=== PATIENT | male | born 1950 | race Caucasian/White ===

== ENCOUNTER 2018-01-11 05:20 | Inpatient (IN) | payer OTHER, BC ==
[2018-01-05 10:22] LABS: ABSOLUTE NEUTROPHILS 4.2 thou/uL (1.4-8.2); BASOPHILS 0.6 % (0.0-2.0); HEMATOCRIT 47.8 % (42.0-52.0); HEMOGLOBIN 16.2 gm/dL (14.0-18.0); LYMPHOCYTES 25.9 % (24.0-44.0); MCH 27.7 pg (26.0-34.0); MCHC 33.8 g/dL (28.0-37.0); MCV 81.9 fL (80.0-100.0); MONOCYTES 10.3 % (1.0-8.0); PLATELET COUNT 156 thou/uL (150-400); POLYS 59.2 % (36.0-66.0); RBC 5.84 mil/uL (4.50-6.00); RDW 13.8 % (10.5-14.5)
[2018-01-05 10:24] LABS: URINE BILIRUBIN NEGATIVE (Negative); URINE BLOOD NEGATIVE (Negative); URINE CLARITY CLEAR; URINE COLOR YELLOW; URINE GLUCOSE-RANDOM* NEGATIVE (Negative); URINE KETONES NEGATIVE (Negative); URINE LEUKOCYTES NEGATIVE (Negative); URINE NITRITE NEGATIVE (Negative); URINE PROTEIN (DIPSTICK) NEGATIVE (Negative); URINE SPECIFIC GRAVITY <= 1.005 (1.005-1.035); URINE UROBILINOGEN 0.2 E.U./dl (0.2-1.0)
[2018-01-05 10:34] LABS: APTT 26.3 Seconds (24.5-32.8); PROTIME 10.6 Seconds (9.3-11.4)
[2018-01-05 10:38] LABS: CALCIUM 8.8 mg/dL (8.5-10.1); CREATININE 1.2 mg/dL (0.7-1.3); POTASSIUM 4.4 mmol/L (3.5-5.1); TOTAL BILIRUBIN 0.7 mg/dL (<0.1-1.0); TOTAL PROTEIN 6.9 g/dL (6.4-8.2)
[2018-01-06 03:14] LABS: GLYCOHEMOGLOBIN (HGB A1C) 5.1 % (4.8-5.6)
[~2018-01-11] VITALS: Ht 182.9 cm; Wt 95.3 kg
[2018-01-11] VITALS (11 sets, daily range): BP systolic 96–129; BP diastolic 55–74
--- NOTE | ~2018-01-11 | EKG ---
[place] [address] [facility] [place] [address] ELECTROCARDIOGRAM REPORT Name: ABBEY PARR Room #: [facility]#: [id number] Admission: Attend Phys: Bashir Aguero MD Discharge: Date of : 50 Report #: [id number] THIS REPORT FOR: //name// [facility] Test Date: 2018-01-05 Test Time: 10:19:00 Pat Name: ABBEY HOWELLJUANITA Department: Room: Gender: M Portfolio Consultant: TALITA WILLIAMSON : 1950 Requested By: Bashir Aguero Order Number: [id number] MD: Miah Powell Measurements Intervals [place] Rate: 49 P: 47 SC: 191 QRS: 4 QRSD: 107 T: 118 QT: 436 QTc: 394 Interpretive Statements Sinus bradycardia Probable left atrial enlargement Inferior infarct, old Probable anteroseptal infarct, age indeterminate No previous ECG available for comparison Electronically Signed On 01-08-2018 13:19:43 CDT by Miah Powell [email or web address] <ELECTRONICALLY SIGNED> By: Miah Powell MD, [facility] 01/08/18 1319 [id number] [id number] Miah Powell MD, FACC /EPI
--- NOTE | ~2018-01-11 | O ---
[facility] [place] [address] OPERATIVE REPORT Name: ABBEY PARR Room #: 239-P [facility] IN M.R.#: [id number] Admission: 01/11/18 Attend Phys: Bashir Aguero MD Discharge: 01/12/18 Date of : 50 Report #: [id number] THIS REPORT FOR: //name// CC: JUSTIN Angel DATE OF SERVICE: 01/11/2018 PREOPERATIVE DIAGNOSIS: Infrarenal abdominal aortic aneurysm, asymptomatic. FINAL DIAGNOSIS: Infrarenal abdominal aortic aneurysm, asymptomatic. OPERATIVE PROCEDURE PERFORMED: 1. Endovascular repair of infrarenal abdominal aortic aneurysm with [place] Excluder system. 2. Bilateral femoral artery exploration. CO-SURGEONS: Bashir Aguero MD and Justin Grubbs MD ANESTHESIA: General. OPERATIVE INDICATIONS: The patient is a very pleasant 67-year-old male who has a known infrarenal abdominal aortic aneurysm that has been observed for some time, has now grown to a size over 5 cm, approximately 5.3. He is admitted at this time now for management of his abdominal aortic aneurysm. OPERATIVE SUMMARY: The patient was brought into the interventional lab, placed on the table in the supine position. After anesthesia was induced via the general endotracheal route and monitoring lines have been positioned, the patient was prepped and draped in sterile fashion with chlorhexidine. I first performed oblique incisions in both groin dissecting down over the femoral arteries and dissecting free the common femoral artery from surrounding tissue. They were each encircled with a vascular loop. Heparin was given. Venipuncture was performed of both common femoral arteries. J wires were placed and then a 6-Maldivian sheath was placed on both sides. A longer J-wire was then advanced up into the abdomen. A catheter was placed over this wire and then a Maria Luisa wire was positioned. On the left side, the 6-Maldivian sheath was replaced with a 12-Maldivian sheath and on the right side the 6-Maldivian sheath was replaced with an 18-Maldivian sheath. From the patient's left side, Dr. Grubbs performed intubation of the left renal artery to marina the site. The body and ipsilateral limb of the device, which was a 23 x 14 x 16 size was then positioned just below the renal artery and was deployed down past the flow divider. The wire and catheter that had been positioned in the left renal artery were then withdrawn back to the aneurysm sac and the gate of the contralateral leg was intubated and [facility] [address] [place] [address] OPERATIVE REPORT Name: ABBEY PARR Room #: 239-P [facility] IN M.R.#: [id number] Admission: 01/11/18 Attend Phys: Bashir Aguero MD Discharge: 01/12/18 Date of : 50 Report #: [id number] confirmed with the technique by pigtail catheter. The contralateral leg, which was an 18 x 14 iliac branch limb was deployed after confirming location of the hypogastric vessels with retrograde angiography with hand injection of contrast. This contralateral leg was then deployed down to the hypogastric vessel on the patient's left leg. Next, the remaining segment of the ipsilateral leg was deployed down to the hypogastric vessel on the right side. Sheaths were withdrawn distally prior to this. We then used balloons and inflated balloons in the proximal aspect of the stent graft as well as at the flow divider and then also in the iliac limbs. We used a kissing balloon technique with the proximal aspect of the iliac limbs. Lastly, a pigtail catheter was positioned up into the abdominal aorta and a final arteriogram was performed showing no evidence of endoleak. There was good positioning of the graft below the renal arteries and at the hypogastric vessels. Next, we removed all wires and sheaths. This was done sequentially. The arterial puncture sites were closed with interrupted suture of 5-0 Prolene. Once flow was reestablished to the legs, protamine was given to reverse the heparin. There was good pulsation in the superficial femoral artery distally bilaterally. The wounds were then irrigated and then closed in multiple layers with absorbable suture. The procedure was completed. The patient was taken to the postanesthesia care unit in stable condition. The operative blood loss was approximately 75 mL. There were no intraoperative complications noted. All sponge and needle counts were reported as correct. <ELECTRONICALLY SIGNED> By: Bashir Aguero MD 01/25/18 1714 1258 1333 Bashir Aguero MD /nt
[~2018-01-11 05:20] MED LIST: ASPIRIN325 PO; COREG25 MG PO; LISINOPRIL20 MG PO; NORVASC5 MG PO; PLAVIX 75 MG TA75 M1 PO; ZOCOR40 MG PO
[2018-01-11 16:26] LABS: MAGNESIUM 1.9 mg/dL (1.8-2.4)
[2018-01-12 06:02] LABS: HEMATOCRIT 42.4 % (42.0-52.0); HEMOGLOBIN 14.2 gm/dL (14.0-18.0); MCH 27.2 pg (26.0-34.0); MCHC 33.4 g/dL (28.0-37.0); MCV 81.5 fL (80.0-100.0); RBC 5.2 mil/uL (4.50-6.00); WBC 13.1 thou/uL (4.0-11.0)
[2018-01-12 06:03] LABS: CALCIUM 8.2 mg/dL (8.5-10.1); CREATININE 1.1 mg/dL (0.7-1.3)
[2018-01-12] MEDS ORDERED: HYDROCODONE-AP1 EAC6 PO (09:42)
[2018-01-12 11:04] VITALS: BP 120/56
== END 2018-01-12 11:46 | disposition home or self-care (01) | DRG 269 ==
LOC: TBA 05:20 → ICU 05:20 → PRE 05:37 → ICU 13:59 → PRE 15:41 → ICU 01-12 11:46
PROVIDERS: Nurse Practitioner; Thoracic Surgery (Cardiothoracic Vascular Surgery)
PROC: 04V03DZ Restriction of Abdominal Aorta with Intraluminal Device, Percutaneous Approach (ICD-10-PCS; principal; 2018-01-11)
PROC: 03HY32Z Insertion of Monitoring Device into Upper Artery, Percutaneous Approach (ICD-10-PCS; 2018-01-11)
PROC: 4A133J1 Monitoring of Arterial Pulse, Peripheral, Percutaneous Approach (ICD-10-PCS; 2018-01-11)
PROC: 4A133B1 Monitoring of Arterial Pressure, Peripheral, Percutaneous Approach (ICD-10-PCS; 2018-01-11)
DX: I71.4 Abdominal aortic aneurysm, without rupture (principal); D62 Acute posthemorrhagic anemia; I25.10 Atherosclerotic heart disease of native coronary artery without angina pectoris; I25.5 Ischemic cardiomyopathy; I10 Essential (primary) hypertension; E78.2 Mixed hyperlipidemia; R91.1 Solitary pulmonary nodule
CPT/HCPCS: 10078; 47375; 50010; 50101; 50386; 50455; 51078; 51301; 56524; 56526; 56527; 57093; 62110; 62900; 65002; 65020; 65040; 65043; 70005

== ENCOUNTER → 2018-03-22 | Outpatient (CLI) | payer OTHER, BC ==
[~2018-03-22] MED LIST changes: +HYDROCODONE-AP1 EAC6 PO
[2018-03-22 08:26] LABS: CREATININE 1.2 mg/dL (0.7-1.3)
== END ==
LOC: CAT 07:42
PROVIDERS: Nuclear Medicine Nuclear Cardiology
DX: Z01.812 Encounter for preprocedural laboratory examination (principal); I71.4 Abdominal aortic aneurysm, without rupture; N28.1 Cyst of kidney, acquired; K76.89 Other specified diseases of liver; I25.810 Atherosclerosis of coronary artery bypass graft(s) without angina pectoris; Z95.828 Presence of other vascular implants and grafts

== ENCOUNTER → 2019-02-08 | Outpatient (CLI) | payer OTHER, BC | LOC: LAB 11:26 | PROVIDERS: Nuclear Medicine Nuclear Cardiology | DX: Z01.812 Encounter for preprocedural laboratory examination (principal); I71.4 Abdominal aortic aneurysm, without rupture; Z95.828 Presence of other vascular implants and grafts; I25.10 Atherosclerotic heart disease of native coronary artery without angina pectoris; M47.817 Spondylosis without myelopathy or radiculopathy, lumbosacral region; K76.89 Other specified diseases of liver; N28.1 Cyst of kidney, acquired; K57.30 Diverticulosis of large intestine without perforation or abscess without bleeding; Z90.49 Acquired absence of other specified parts of digestive tract ==